=== PATIENT | female | born 1955 | race Caucasian/White ===

== ENCOUNTER → 2016-11-19 | Outpatient (CLI) | payer OTHER ==
[~2016-11-19] MED LIST: CALCIUM 600+D1 EAC3 PO; FLECAINIDE ACET50 MG PO; INVOKAMET 150-1 EAC1 PO; ISMO (MONOKET)20 MG PO; LEXAPRO10 MG PO; LIPITOR40 MG PO; NAPROSYN500 MG PO; PROTONIX40 MG PO; THERA-VITE W/ B1 TAB PO; TOUJEO SOL300 UNIT/1 SUB-Q; VITAMIN D-32000 UNI1 PO; XARELTO20 MG PO
--- NOTE | ~2016-11-19 | ESTC ---
Cardiac Perfusion Imaging Demographics Patient Name SRINIVASA CHRISTIANSEN Gender Female Patient Number [id number] Race Visit Number [id number] Ethnicity [employer] ID Room Number Accession Number [id number] Height 66 inches Date of 1955 Weight 198 pounds Interpreting Madhav Boss Date of study 11/19/2016 Physician Supervising /JESSICA Boss NM Technologist Heather Herbert MD Ordering Physician Madhav Boss Stress pharmacy technician per diem Stress ECG Reading Madhav Boss Nurse Bhavin Fitzpatrick RN Physician MD Boaz Vazquez RN The procedure was explained in detail to the patient. Risks, complications and alternative treatments were reviewed. Written consent was obtained. Medications Reviewed with Patient prior to Procedure. Procedure Procedure Type: Nuclear Stress Test:Pharmacological, Lexiscan, Cardiolite Stress Test Procedure Start time: 11/19/2016 08:29 End time: 11/19/2016 08:39 Indications: Chest pain. Risk Factors The patient risk factors include:peripheral arterial disease, former tobacco use and insulin treated diabetes mellitus. Conclusions Summary Lexiscan cardiolite with no EKG changes of ischemia. Anterior medium ischemia of mild degree. LVEF:68%. Normal WM. Stress Protocols Resting ECG RSR. Pre-stress physical exam: Un changed. Predicted HR: 158 bpm ECG Findings No ECG changes suggestive of ischemia. Arrhythmias No rhythm abnormality. Symptoms Neck tightness. Stress Interpretation Lexiscan cardiolite study. Hypertensive BP response. Neck tightness. No EKG changes of ischemia. No arrythmias. Imaging Results High risk findings Summed scores - Summed stress score: 6 - Summed rest score: 4 - Summed difference score: 2 Stress ejection Ejection fraction:68 % EDV :120 ml ESV :38 ml Stroke volume :82 ml LV mass :142 gr LV size:Normal Normal LV function Imaging Protocols Rest Stress Isotope:Tc99m Sestamibi IV Isotope: Tc99m Sestamibi IV Isotope dose:14.2 mCi Isotope dose:42.5 mCi Date:11/19/2016 07:02 Date:11/19/2016 08:31 Technique: SPECT Technique: Gated Supine SPECT Supine Scan Time:45-60 minutes post Scan Time:45-60 minutes post injection injection Procedure Medications - Regadenoson (Lexiscan) 0.4 mg IV over 10-15 sec. I.V. 0.4 mg. Medications administered per verbal order and read back to physician prior to administration. Medical History Admission Data Admission date: 11/19/2016 Admission Time: 06:40 Hospital Status: Outpatient. Signatures dtt: Karyn Corey dtd: 11/19/16 0829 Physician Self Edit
== END | disposition disaster alternative care site (69) ==
LOC: GRAD 11-12 07:00
DX: R07.9 Chest pain, unspecified (principal); E78.5 Hyperlipidemia, unspecified; I48.91 Unspecified atrial fibrillation; E11.9 Type 2 diabetes mellitus without complications; E66.01 Morbid (severe) obesity due to excess calories
CPT/HCPCS: A9500; J0280; J2785

== ENCOUNTER 2016-11-30 11:53 | Outpatient (CLI) | payer OTHER ==
[~2016-11-30] VITALS: Ht 167.6 cm; Wt 89.1 kg
--- NOTE | ~2016-11-30 | CATH ---
Cardiac Diagnostic Report Demographics Patient Name SRINIVASA CHRISTIANSEN Gender Female Date of 1955 Age 61 year(s) Patient Number [id number] Date of Study 11/30/2016 Visit Number [id number] Room Number [id number] [place] [id number] Ht 167.6 cm Wt 89.1 kg Referring Yani Fitzgerald MD Primary Physician Physician Performing Madhav Secondary Physician Physician Karyn RCUZ Diagnostic Madhav Assisting Physician Physician Karyn CRUZ Interventional Physician Cylinder Machine Operator Pulp Drier Physician Findings and Conclusions Diagnostic Findings and Conclusion 1. Normal LVEDP 2. Mild CAD, mild proximal CAD ectasis Diagnostic Recommendations Medical treatment Procedure Description The patient was brought to the diagnostic cardiac catheterization-EP laboratory in the fasting, non-sedated state. Informed consent was obtained in the written and verbal form after the risks and benefits were explained. The patient had no further questions and agreed to proceed. The planned puncture-incision site(s) were shaved and prepped with ChloraPrep and draped in the usual sterile manner. Conscious sedation, supplemental oxygen, and pain control medications were delivered by a registered nurse under physician guidance. Surface ECG rhythm, blood pressure measurement, and pulse oximetry were monitored throughout the procedure. Arterial access. The access site was infiltrated with lidocaine. The vessel was entered with the Seldinger technique. A sheath was advanced into the vessel and used for catheter placement. Left heart catheterization. A catheter was advanced across the aortic valve to the left ventricle under fluoroscopic guidance. Resting hemodynamics were obtained. Selective right coronary angiography. A catheter was advanced into the right coronary vessel ostium under fluoroscopic guidance. Contrast was injected by hand. Images were obtained in multiple projections. Selective left coronary angiography. A catheter was advanced into the left coronary vessel ostium under Fluoroscopic guidance. Contrast was injected by hand. Images were obtained in multiple projections. Arterial artery hemostasis was achieved. The patient was transferred to a regular nursing floor via cart accompanied by a nurse. The patient left the laboratory in stable condition. Diagnostic Cath Status: Elective Procedure Procedure Type Diagnostic procedure:Angiography:, Coronary Angios /[facility] Indications: Hypertension, Diabetes and Paroxysmal atrial fibrillation. The procedure was explained in detail to the patient. Risks, complications and alternative treatments were reviewed. Written consent was obtained. Medications Reviewed with Patient prior to Procedure. Angiographic Findings Dominance: Right Cardiac Arteries and Lesion Findings LMCA: Minor Luminal Irregularities.luminal irregularities LAD: proximal mild ectasis, Type 3 vessel Diag. mild diffuse disease LCx: small mild diffuse disease RCA: mild diffuse disease Procedure Data Procedure Date Date: 11/30/2016Start: 05:37 PMEnd: 06:03 PM Entry Locations - Retrograde Percutaneous access was performed through the Right Radial artery (Primary location). A 6 Fr sheath was inserted. Hemostasis was successfully obtained using Mechanical Compression. Closure Comments: 16cc's of air in R-band applied by RT. Sherri. Procedure Medications Order and Administration + + + +-------+ !Time !Medication !Dosage !Route ! + + + +-------+ 11/30/2016 05:35 PM !Versed !2 mg !I.V. ! + + + +-------11/30/2016 05:35 PM !Fentanyl !25 mcg !I.V. ! + + + +-------11/30/2016 05:42 PM !Oxygen !4 l/min !NC ! + + + +-------+ !11/30/2016 05:42 PM !Radial 2% Lidocaine !20 mg !I.A. ! + + + +-------+ !11/30/2016 05:43 PM !Radial Nitroglycerin !200 mcg !I.A. ! + + + +-------+ !11/30/2016 05:46 PM !Heparin (ACC_3) !5000 units !I.V. ! + + + +-------+ Devices Used - A6 Fr. BS JR 4 Diag. Catheterwas used for:Right coronary angiography. - A6 Fr. BS JL 3.5 Diag. Catheterwas used for:Left coronary angiography. Contrast Material - Isovue 43578 ml Fluoroscopy Time: Diagnostic: 4:06 minutes. Total: 4:06 minutes. Fluoroscopy Dose: Diagnostic: 816 mGy. Total: 816 mGy. Estimated Blood Loss: 20 ml. Medical History Performed Procedures and Imaging Results - Stress testing with SPECT MPIwas performed. Results were: Positive. History of Disease + + + + !Diagnosis !Date !Comments ! + + + + !Hypertension ! ! ! + + + + !Diabetes ! ! ! + + + + Allergies - Other:(Cardizem). - Other:(clindamysin). - Other:(strawberry). Risk Factors The patient risk factors include:treated hypercholesterolemia, treated hypertension, family history of premature CAD, insulin-treated diabetes mellitus, last creatinine: 0.6 mg/dl, creatinine clearance: 136.74 ml/min, dyslipidemia and former tobacco use. Admission Data Admission Date: 11/30/2016 Admission Time: 11:53 AM Admit Source: Other Insurance Payors: Private health insurance. Admission Medications + +------+------+ + + + + !Medication !Dosage!Times !Last !Last !Administered !Comments ! ! ! !Per !Delivery !Delivery ! ! ! ! ! !Day !Date !Time ! ! ! + +------+------+ + + + + !Statin (any)! ! ! ! !Yes ! ! + +------+------+ + + + + !Nitrates (iv! ! ! ! !Yes ! ! !or buccal) ! ! ! ! ! ! ! + +------+------+ + + + + Clinical Evaluation Leading to Procedure - The patient's CAD presentation was assessed as: Unstable angina. - There were no anginal symptoms. Anti-anginal medications were prescribed during the past two weeks. The medication is: Long Acting Nitrates. Hemodynamics Condition: Rest O2 Consumption: Estimated: 176.59Heart Rate: 57 bpm Pressures (mmHg) +-----+ + !Site !Pressure ! +-----+ + !LV !156/0 ,10 ! +-----+ + !LV !173/-1 ,13 ! +-----+ + !LV !155/-5 ,11 ! +-----+ + !LV !157/-6 ,12 ! +-----+ + !AO !151/66 (97) ! +-----+ + Shunts Oxygen Values O2 Capacity 153.68 O2 Consumption 176.59 Discharge Data Discharge Date: 11/30/2016 Hospital Status: Outpatient Signatures dtt: Karyn Corey dtjoselito: 11/30/16 1737 Physician Self Edit
== END 2016-11-30 22:35 | disposition disaster alternative care site (69) ==
LOC: GCAT 11:53 → GPCU 11:53 → GPOC 12:00 → GCAT 22:35
DX: I25.10 Atherosclerotic heart disease of native coronary artery without angina pectoris (principal); E78.5 Hyperlipidemia, unspecified; I48.0 Paroxysmal atrial fibrillation; E11.42 Type 2 diabetes mellitus with diabetic polyneuropathy; E66.01 Morbid (severe) obesity due to excess calories; E11.610 Type 2 diabetes mellitus with diabetic neuropathic arthropathy; Z79.4 Long term (current) use of insulin; Z82.49 Family history of ischemic heart disease and other diseases of the circulatory system; Z87.891 Personal history of nicotine dependence
CPT/HCPCS: C1894; J1644; J2001; J2250; J3010; J7030